=== PATIENT | male | born 1995 | race Caucasian/White ===

== ENCOUNTER 2016-09-07 06:24 | Inpatient (IN) | payer OTHER ==
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
[2016-09-07 06:45] LABS: EOSINOPHILS % (AUTO) 6.2 % (0-5); MONOCYTES % (AUTO) 12.4 % (4-12); Mean Corpuscular Hemoglobin 26.1 pg (27.0-35.0); Mean Corpuscular Volume 78.9 fL (81-100); NEUTROPHILS % (AUTO) 41.7 % (40-74); Platelet Count 244 bil/L (150-400)
--- NOTE | 2016-09-07 08:27 | DRSVH ---
PROCEDURE: X-RAY CHEST ONE VIEW, PORTABLE ([id number]) INDICATIONS: trauma TECHNIQUE: One view of the chest was acquired. COMPARISON: None. FINDINGS: Surgical changes and devices: None. Lungs and pleura: No pleural effusions or pneumothorax. Lungs are clear. Mediastinum: Mediastinal contours appear normal. Heart size is normal. Bones and chest wall: No suspicious bony lesions. Overlying soft tissues appear unremarkable. IMPRESSION: No radiographic evidence of acute cardiopulmonary pathology. Dictated by: Artis Moreno M.D. on 09/07/2016 at 8:25 Approved by: Artis Moreno M.D. on 09/07/2016 at 8:26
[2016-09-07] MEDS ORDERED: Magnesium Hydroxide 10 mL Oral Concentration PO PRN (17:40)
[2016-09-07] MEDS ORDERED: Benzocaine-Menthol Lozenge 2/Pkg PO PRN (17:40)
[2016-09-07] MEDS ORDERED: Alum-Mag Hydrox-Simeth 30 mL Suspension PO PRN (17:40)
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
--- NOTE | 2016-09-08 05:12 | NUR ---
Nursing Note Medical Tech 11pm to 7am Pt asleep at start of shift and slept through the night with uninterrupted sleep. No concerns voiced or observed. Monitored pt with q 15 min face checks for safety, location and accountability
[2016-09-08] MEDS: buPROPion SR 150 mg ER12 Tablet PO SCH (12:47)
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
--- NOTE | 2016-09-08 14:42 | NUR ---
NURS Note DAYSHIFT Mood: "I'm doing well." Endorses anxiety 2/10; denies depression. Affect: Well modulated. Behavior: Pleasant, appropriate. In room much of shift. Slept until 1100. Thought Content/Process: Linear, logical. Denies SI, HI. Denies AH, VH. PRN/NURS Notes: Gave bacitracin and cotton balls for recently pierced ears.
--- NOTE | 2016-09-08 16:30 | NUR ---
Observations [id number] Pt slept until 11am. Friendly with peers and staff. Pt was active on the unit, spending time in the group room working on a math project. Pt did not attend breakfast, but did attend lunch and dinner. Pt was friendly with peers and staff. Was observed every 15 minutes of shift as directed.
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
--- NOTE | 2016-09-08 21:45 | NUR ---
Nurses Note Evening Patient remains pleasant,polite and social with peers. Patient was visited by his parents which appeared to go well. Will encourage improved coping and esteem skills,maintain q 15min. checks for safety and support. Addendum: 09/08/16 at 2151 by LUIS ARMANDO ALCANTAR RN Amended: Links added.
--- NOTE | 2016-09-09 06:26 | NUR ---
Sleep Adequate sleep through the night with no noted distress or awakening per protocol checks. Pt has been asleep since 2244. Total slepp over 6.5 hours.
[2016-09-09] MEDS: buPROPion SR 150 mg ER12 Tablet PO SCH (08:01)
--- NOTE | 2016-09-09 10:17 | NUR ---
nursing/discharge: "I feel like I'm ready. Not to knock this place but I think I now need to just go and get on with life." His affect is bright. He has been listening to music and working on mathematical problems in the rec room. The visit from his parents last night he says went pretty well. Pt reports depression @ 0-1; anxiety:"more like excitement and it's a '3'. Denies any pain, suicide ideation or plan. Has plans to stay at his best friend's mother's home, who has kind of adopted him. "I know I need to continue on with therapy" and plans to complete the 2 classes he needs to graduate from [employer] [facility] [employer]. He has a ride arranged Addendum: 09/09/16 at 1404 by ROBBIE VARMA RN Reviewed medication, DC instructions, and appointments and pt verbalizes understanding. He has his script for his meds.His belongings were returned and signed for, and he was dc'd with all the above to his friend @ 1400.
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
[2016-09-09] MEDS ORDERED: BUPR150T8 PO (13:08)
--- NOTE | 2016-09-09 15:15 | NUR ---
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 He stated his anxiety was at a 3, but it was due to being discharged today. He slept for 6.25hrs. A: Patient was discharged at 1400 and is returning to live with his friend, who's mother has invited him to stay with them. He was scheduled for a mental health intake with Terri, and has made contact with [facility], in order to find an LGTBQ counselor in the area. He stated that he felt good about leaving, and is looking forward to going to therapy and hopefully continuing down a positive path with his mother. P: Follow discharge instructions and utilize safety plan as needed.
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
== END 2016-09-09 14:00 | disposition home or self-care (01) | DRG 881 ==
LOC: SED 06:24 → MHC 16:00
PROVIDERS: ADMIT Internal Medicine Infectious Disease; ATTEND Psychiatry & Neurology Psychiatry
DX: F34.1 Dysthymic disorder (principal); Y92.410 Unspecified street and highway as the place of occurrence of the external cause